=== PATIENT | male | born 1965 | race Caucasian/White ===

== ENCOUNTER → 2020-06-15 | Outpatient (CLI) | payer MEDICAID, OTHER ==
--- NOTE | 2020-06-15 11:33 | REP ---
Clinical: Trauma/injury. Technique: Internal rotation, external rotation, and Y view of the left shoulder. Findings: Mild osteopenia and age-related changes are appreciated. No acute fracture dislocation. Impression: Osteopenia and degenerative change. No acute fracture or dislocation. Electronically Signed by Tyson Rey MD 06/15/2020 11:24 A
== END ==
LOC: M LRY 10:01
PROVIDERS: ATTEND Physician Assistant
DX: M19.012 Primary osteoarthritis, left shoulder (principal)